=== PATIENT | female | born 2005 | race Hispanic/Latino ===

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

== ENCOUNTER 2025-07-12 22:24 | Emergency (ER) | payer SELFPAY ==
[~2025-07-12] VITALS: Ht 162.6 cm; Wt 85.3 kg
[~2025-07-12 22:24] MED LIST changes: +ACYC30OI2 TP; +CLIN-141 PO; +FAMC500T8 PO; +IBUP-1492 PO; -IBUP-2070 PO; +IBUP-2077 PO
[2025-07-12 22:55] LABS: APPEARANCE,URINE CLEAR (CLEAR); GLUCOSE, URINE (UA) NEGATIVE (NEGATIVE); LEUKOCYTE ESTERASE ,URINE NEGATIVE Leu/uL (NEGATIVE); NITRATE,URINE NEGATIVE (NEGATIVE); OCCULT BLOOD,URINE NEGATIVE (NEGATIVE)
[2025-07-12 22:58] LABS: RAPID GROUP A STREP negative (NEGATIVE)
[2025-07-12 23:01] LABS: ADD UA MICROSCOPIC YES
[2025-07-12 23:05] LABS: SARS-CoV-2, RNA, NAAT NEGATIVE SARS CoV-2 (NEGATIVE)
[2025-07-12 23:08] LABS: INFLUENZA TYPE A Negative For Type A (NEGATIVE); INFLUENZA TYPE B Negative For Type B (NEGATIVE)
[2025-07-12 23:09] LABS: SQUAMOUS EPITHELIAL CELL,UR Rare /HPF (0-2)
[2025-07-12] MEDS: 0.9%NACL 1000ML 1,000 ML IV ONE (23:12)
[2025-07-12 23:21] LABS: IMMATURE GRANULOCYTE ABSOLUTE 0.02 K/uL (0-1); NUCLEATED RED BLOOD CELLS 0.0 % (0.0-0.19); PLATELET COUNT (AUTO) 235 K/uL (130-400); RED BLOOD CELL COUNT(AUTO) 4.47 MIL/uL (4.00-5.50); RED CELL DISTRIBUTION WIDTH 12.3 % (11.0-15.5); WHITE BLOOD COUNT (AUTO) 6.5 K/uL (4.8-10.8)
[2025-07-12 23:30] LABS: CREATININE 0.5 mg/dL (0.5-1.0); GLOMERULAR FILTR. RATE CALC 138.0 mL/min (>90); GLUCOSE,RANDOM 93.0 mg/dL (70-105); SODIUM SERUM 133.0 mmol/L (136-145); UREA NITROGEN, BLOOD 12.0 mg/dL (7-18)
[2025-07-12 23:34] LABS: ASPARTATE AMINOTRANSFERASE 20.0 U/L (10-37); TOTAL PROTEIN, SERUM 6.9 g/dL (6.0-8.3)
[2025-07-12 23:36] LABS: AMPHET/METH SCREEN,URINE NEGATIVE (NEGATIVE); BARBITURATE SCREEN, URINE NEGATIVE (NEGATIVE); CANNABINOID SCREEN,URINE POSITIVE (NEGATIVE); COCAINE SCREEN,URINE NEGATIVE (NEGATIVE)
--- NOTE | 2025-07-13 01:17 | HMCIMG ---
EXAM: US Abdomen, Right Upper Quadrant. CLINICAL HISTORY: Abdominal pain. TECHNIQUE: Right upper quadrant sonography performed with image documentation. COMPARISON: None provided. FINDINGS: LIVER: Within normal limits in size and increased echogenicity. No mass. The liver measures 14.5 cm. GALLBLADDER: The gallbladder appears normal. No gallbladder wall thickening seen. No gallstones are evident. The gallbladder wall measures 2 mm. COMMON BILE DUCT: No dilation. The common bile duct measures 3 mm. PANCREAS: The pancreas is partially visualized. RIGHT KIDNEY: Unremarkable. Normal renal contours. No renal mass or calculus. No hydronephrosis. Right kidney measures 10.5 x 4.2 x 4.8 cm IMPRESSION: No acute process. Mild fatty liver. /Axel
[2025-07-13] MEDS ORDERED: DICY20TA2 PO (01:40)
[2025-07-13] MEDS ORDERED: ONDA-243 PO (01:40)
[2025-07-13] MEDS ORDERED: FAMO-136 PO (01:40)
--- NOTE | 2025-07-13 01:41 | ERN ---
ED Note History of Present Illness Stated Complaint: C/O ABD PAIN WITH N X V X DIARRHEA Chief Complaint: Abdominal Pain Time Seen by MD: 22:33 Time Seen by Midlevel: 22:33 Dictation: The patient is a 20-year-old female with no significant past medical history who presents to the emergency department with complaints of nausea and nonbloody vomiting onset 6:00 a.m.. Patient also reports nonbloody diarrhea. Denies any current abdominal pain but reports occasional epigastric pain after vomiting. Denies any fevers, denies any upper respiratory symptoms. Allergies: Coded Allergies: No Known Drug Allergies (Unverified Allergy, Unknown, 04/12/22) Home Meds Active Scripts Ibuprofen (Ibuprofen 800 mg Tab) 800 Mg Tab, 800 MG PO Q8H PRN for fever or pain, #30 TAB 0 Refills Prov:CHRISTOPHER PAGANP 05/04/24 Acyclovir (Zovirax) 5 % Oint, 1 APPL TP AD for 7 Days, #60 GM APPLY SMALL AMOUNT TO SKIN RASH WITH GLOVES EVERY 3 HOURS WHILE AWAKE FOR THE NEXT SEVEN DAYS. GOOD HAND WASHING AFTER TREATING Prov:CHRISTOPHER PAGAN [facility] 05/04/24 Famciclovir (Famciclovir) 500 Mg Tablet, 500 MG PO TID for 7 Days, #21 TAB Prov:CHRISTOPHER PAGAN [facility] 05/04/24 Clindamycin HCl (Clindamycin HCl) 300 Mg Capsule, 1 CAP PO QID for 7 Days, #28 CAP 0 Refills Prov:CHRISTOPHER PAGAN [facility] 05/04/24 Sumatriptan Succinate (Sumatriptan Succinate) 25 Mg Tablet, 50 MG PO ONCE PRN for HEADACHE, #9 TAB Prov:JAMEY MUNOZ MD 09/24/23 Ondansetron HCl (Ondansetron HCl) 4 Mg Tablet, 4 MG PO TIDP PRN for VOMITING, #20 TAB Prov:KELSEY BAKER MD 04/02/23 Famotidine (Pepcid) 20 Mg Tablet, 20 MG PO DAILY, #30 TAB Prov:KELSEY BAKER MD 04/02/23 Ibuprofen (Motrin/Advil) 800 Mg Tab, 800 MG PO TID, #30 TAB Prov:KELSEY BAKER MD 04/02/23 Prednisone (Prednisone) 20 Mg Tablet, 1 TAB PO AD for 6 Days, #14 TAB 0 Refills TAKE 3 TAB BY MOUTH daily X3 DAYS, THEN TAKE 2 TAB BY MOUTH daily X2 DAYS, THEN TAKE 1 TAB BY MOUTH ONCE A DAY X1 DAY. Prov:KELSEY BAKER MD 04/02/23 Ibuprofen (Ibuprofen) 600 Mg Tablet, 600 MG PO Q8H PRN for PAIN for 5 Days, #15 TAB Prov:SANDOVALLAURYN FNP 01/22/23 Ibuprofen (Motrin/Advil) 800 Mg Tab, 800 MG PO TID, #30 TAB Prov:KELSEY BAKER MD 07/16/22 Past Medical History Past Medical History: No Pertinent History Surgical History: None Family History: Negative Social History: Negative, Lives with family History: Not Applicable LMP: Jun 03, 2025 RN Note Reviewed/Agreed w/PFSH: Yes Review of System Dictation Constitutional: Negative for fever,chills, and weight loss Eyes: Negative for injury, pain,redness, and discharge ENT: Negative for injury,pain or swelling Cardiovascular: Negative for chest pain, palpitations, and edema Respiratory: Negative for shortness of breath, cough, and wheezing, Abdomen/GI: Negative for constipation positive for abdominal pain, nausea, vomiting, diarrhea Back: Negative for injury and pain : Negative for injury, bleeding and discharge MS/Extremity: Negative for injury and deformity Skin: Negative for rash, and discoloration Neuro: Negative for headache, weakness, numbness, tingling, and seizure Psych: Negative for suicide ideation, homicidal ideation, and hallucinations Initial Vital Sign VS Vital Signs Date Time Temp Pulse Resp B/P (MAP) Pulse Ox O2 Delivery O2 Flow Rate FiO2 07/12/25 22:26 99.7 93 20 118/73 99 Room Air 07/12/25 23:13 0 21 Physical Exam Dictation Vital Signs reviewed General Appearance: Alert, oriented x 3, no acute distress, well developed, nourished. Head and Face: non-traumatic. Eyes: PERRL, pink conjunctivas, eyelid no trauma, anterior chamber with arcus senilis. Ears: Pinnas intact and no signs of trauma or erythema ear canals clear and no discharge TM no erythema Nose: No discharge, no bleeding. Oropharynx: Mouth normal, tongue pink. pharynx clear,no erythema, tonsils no exudates, no abscesses noted, mucous membrane moist Neck: Supple, non-tender, no thyromegaly, no masses, no JVD, no bruits Breast:Deferred Chest:No tenderness, no crepitus, no paradoxical movement, no retractions Lungs:Clear, well-ventilated, symmetric, no rales, no wheezing, no rhonchi, no stridor, good breath sounds bilaterally Heart: Regular rate, regular rhythm, no murmur, no gallops Vascular: no peripheral edema, Abdomen: Soft, positive bowel sounds, nondistended, no guarding, nontender, no rebound, no masses no hepatomegaly, no splenomegaly, no Zavala's sign, no hernias. Rectal: Deferred Genital: Deferred Neurological: Normal speech, motor function intact, sensory function intact Musculoskeletal: Neck nontender, full range of motion, back nontender, full range of motion, Extremities: nontender, full range of motion Skin: Color pink, dry, no turgor, no rash, no lacerations, no abrasions, no contusions. Lymphatic: Deferred Results (Laboratory/Radiology) Laboratory/Radiology Laboratory Tests Test 07/12/25 22:35 07/12/25 23:13 Urine Color YELLOW (YELLOW) Urine Appearance CLEAR (CLEAR) Urine pH 6.5 (5.0-8.0) Urine Specific Manly 1.039 (1.001-1.031) Urine Protein 20 mg/dL (NEGATIVE) H Urine Glucose (UA) NEGATIVE mg/dL (NEGATIVE) Urine Ketones 20 mg/dL (NEGATIVE) H Urine Occult Blood NEGATIVE (NEGATIVE) Urine Nitrate NEGATIVE (NEGATIVE) Urine Bilirubin NEGATIVE mg/dL (NEGATIVE) Urine Urobilinogen 0.2 mg/dL (0.2-1.0) Urine Leukocyte Esterase NEGATIVE Roge/uL Urine RBC 0-1 /HPF (0-1) Urine WBC 0-1 /HPF (0-1) Urine Squamous Epithelial Cells Rare /HPF (0-2) Urine Bacteria None Seen /HPF (None Seen) Urine HCG, Qualitative NEGATIVE (NEGATIVE) Urine Opiates Screen NEGATIVE (NEGATIVE) Urine Barbiturates Screen NEGATIVE (NEGATIVE) Urine Phencyclidine Screen NEGATIVE (NEGATIVE) Urine Amphetamines Screen NEGATIVE (NEGATIVE) Urine Benzodiazepines Screen NEGATIVE (NEGATIVE) Urine Cocaine Screen NEGATIVE (NEGATIVE) Urine Marijuana (THC) Screen POSITIVE (NEGATIVE) H Influenza Type A Antigen Negative For Type A Influenza Type B Antigen Negative For Type B SARS-CoV-2, RNA, NAAT NEGATIVE SARS CoV-2 Group A Streptococcus Rapid negative (NEGATIVE) White Blood Count 6.5 K/uL (4.8-10.8) Red Blood Count 4.47 MIL/uL (4.00-5.50) Hemoglobin 13.8 g/dL (12.0-16.0) Hematocrit 40.4 % (36-48) Mean Corpuscular Volume 90.4 fL (80-100) Mean Corpuscular Hemoglobin 30.9 pg (27.0-33.0) Mean Corpuscular Hemoglobin Concent 34.2 g/dL (32.0-36.0) Red Cell Distribution Width 12.3 % (11.0-15.5) Platelet Count 235 K/uL (130-400) Mean Platelet Volume 10.5 fL (7.5-10.5) Immature Granulocyte % (Auto) 0.3 % (0-1) Neutrophils (%) (Auto) 82.3 % (40.0-77.0) H Lymphocytes (%) (Auto) 9.6 % (21.0-51.0) L Monocytes (%) (Auto) 7.6 % (3.0-13.0) Eosinophils (%) (Auto) 0.0 % (0.0-8.0) Basophils (%) (Auto) 0.2 % (0.0-5.0) Neutrophils # (Auto) 5.4 K/uL (1.8-7.7) Lymphocytes # (Auto) 0.6 K/uL (1.0-4.8) L Monocytes # (Auto) 0.5 K/uL (0.1-1.0) Eosinophils # (Auto) 0.00 K/uL (0.00-0.70) Basophils # (Auto) 0.01 K/uL (0.00-0.20) Absolute Immature Granulocyte (auto 0.02 K/uL (0-1) Nucleated Red Blood Cells 0.0 % (0.0-0.19) White Cell Morphology Comment See comments Sodium Level 133 mmol/L (136-145) L Potassium Level 3.3 mmol/L (3.5-5.1) L Chloride Level 98 mmol/L (101-111) L Carbon Dioxide Level 27 mmol/L (21-32) Blood Urea Nitrogen 12 mg/dL (7-18) Creatinine 0.5 mg/dL (0.5-1.0) Glomerular Filtration Rate Calc 138 mL/min (>90) Random Glucose 93 mg/dL (70-105) Total Calcium 8.3 mg/dL (8.5-10.1) L Total Bilirubin 2.6 mg/dL (0.2-1.0) H Direct Bilirubin 0.3 mg/dL (0.0-0.3) Aspartate Amino Transf (AST/SGOT) 20 U/L (10-37) Alanine Aminotransferase (ALT/SGPT) 33 U/L (12-78) Alkaline Phosphatase 65 U/L (50-136) Total Protein 6.9 g/dL (6.0-8.3) Albumin 3.6 g/dL (3.5-5.0) Lipase 25 U/L (16-77) SERVICE [id number] REASON: abd pain ORDERING PHYSICIAN: SANGITA HOGUE PRINTER MACHINE PROCEDURE: [id number] - US ABDOMINAL RUQ\LTD EXAM: US Abdomen, Right Upper Quadrant. CLINICAL HISTORY: Abdominal pain. TECHNIQUE: Right upper quadrant sonography performed with image documentation. COMPARISON: None provided. FINDINGS: LIVER: Within normal limits in size and increased echogenicity. No mass. The liver measures 14.5 cm. GALLBLADDER: The gallbladder appears normal. No gallbladder wall thickening seen. No gallstones are evident. The gallbladder wall measures 2 mm. COMMON BILE DUCT: No dilation. The common bile duct measures 3 mm. PANCREAS: The pancreas is partially visualized. RIGHT KIDNEY: Unremarkable. Normal renal contours. No renal mass or calculus. No hydronephrosis. Right kidney measures 10.5 x 4.2 x 4.8 cm IMPRESSION: No acute process. Mild fatty liver. /[place] Labs Reviewed?: Yes ED Course ED Course Orders Procedure Category Date Status Time Covid Rna Naat LAB 07/12/25 Complete 22:31 Influenza Type A & B, LAB 07/12/25 Complete Rapid 22:31 Rapid (Group A Strep) LAB 07/12/25 Complete 22:31 Urinalysis Profile LAB 07/12/25 Complete 22:31 ,Urine Test LAB 07/12/25 Complete 22:31 Cbc With Differential LAB 07/12/25 Complete 22:56 0.9%Nacl 1000ml (Ns PHA 07/12/25 Complete 1000ml) 23:00 Ondansetron 4mg Inj PHA 07/12/25 Complete (Zofran 4mg Inj) 23:00 Pantoprazole 40mg Inj PHA 07/12/25 Complete (Protonix 40mg Inj 23:00 Lipase LAB 07/12/25 Complete 22:56 Basic Metabolic Panel LAB 07/12/25 Complete 22:56 Hepatic Function Panel LAB 07/12/25 Complete 22:56 Drug Screen Urine LAB 07/12/25 Complete 23:05 Us Abdominal Ruq\Ltd US 07/12/25 Resulted 23:50 Potassium Bicarb/Cit PHA 07/13/25 Complete Ac 25meq (K-Lyte Ta 00:00 Current Medications Medications (Trade) Dose Ordered Sig/Chela Route PRN Reason Start Time Stop Time Status Last Admin Dose Admin Ondansetron HCl (zoFRAN 4MG INJ) 4 mg ONCE ONCE IVP 07/12/25 23:00 07/12/25 23:03 DC 07/12/25 23:12 Pantoprazole Sodium (PROTonix 40MG INJ) 40 mg ONCE ONCE IVP 07/12/25 23:00 07/12/25 23:03 DC 07/12/25 23:12 Potassium Bicarbonate (K-Lyte Tablet Eff 25 Meq Tablet.eff) 25 meq ONCE ONCE PO 07/13/25 00:00 07/13/25 00:01 DC 07/13/25 00:06 Sodium Chloride 1,000 ml @ 0 mls/hr ONCE ONCE IV 07/12/25 23:00 07/12/25 23:03 DC 07/12/25 23:12 Vital Signs Date Time Temp Pulse Resp B/P (MAP) Pulse Ox O2 Delivery O2 Flow Rate FiO2 07/12/25 23:13 100.4 90 18 123/76 99 Room Air* 0 21 07/12/25 22:26 99.7 93 20 118/73 99 Room Air Medical Decision Making MDM The patient is a 20-year-old female with no significant past medical history who presents to the emergency department with complaints of nausea and nonbloody vomiting onset 6:00 a.m.. Patient also reports nonbloody diarrhea. Denies any current abdominal pain but reports occasional epigastric pain after vomiting. Denies any fevers, denies any upper respiratory symptoms. CBC showed no leukocytosis, no anemia, chemistry showed mild hyponatremia, hypochloremia, hypokalemia, normal renal function, negative lipase, negative liver enzymes slightly elevated total bilirubin which patient has had in the past. Ultrasound mild fatty liver. Urinalysis unremarkable. Urine drug screen positive for marijuana. On physical exam patient is in no acute distress, nontoxic appearance, abdomen is nontender to palpation. Patient will be discharged to follow up with PCP. Differential diagnosis: Gastroenteritis, dehydration, gastritis, electrolyte imbalance Need for hospitalization: Patient does not meet criteria for hospitalization. There are no social concerns with this patient. DX & DISP Disposition: Discharge Departure Impression: Primary Impression: Viral gastroenteritis Additional Impression: Hypokalemia Condition: Stable Scripts Famotidine (Pepcid) 20 Mg Tablet 1 TAB PO DAILY for 30 Days, #60 TAB 0 Refills Prov: LENNIESANGITA [facility] 07/13/25 Dicyclomine HCl (Bentyl) 20 Mg Tab 1 TAB PO BID for irritable bowel symptoms for 30 Days, #60 TAB 0 Refills Prov: ALFREDITO HOGUELEN [facility] 07/13/25 Ondansetron (Ondansetron Odt) 4 Mg Tab.rapdis 4 MG PO Q6HPRN PRN for nausea, #16 TAB 0 Refills Prov: SANGITA HOGUE [facility] 07/13/25 Additional Instructions: Your labs showed you were slightly dehydrated in your potassium was slightly low which was replaced in you received IV fluids. Take your medications as prescribed. Follow up with your primary doctor in 1-2 days. If anything worsens please return to ER. FOLLOW-UP WITH PRIMARY CARE PROVIDER IN 1 TO 2 DAYS. TAKE MEDICATIONS DIRECTED HERE IN THE EMERGENCY ROOM. OKAY TO CONTINUE HOME MEDICATIONS UNLESS OTHERWISE DISCUSSED DURING YOUR VISIT IN THE EMERGENCY ROOM TODAY. RETURN TO YOUR NEAREST EMERGENCY ROOM IF SYMPTOMS WORSEN OR IF THERE IS NO IMPROVEMENT. CALL 911 IF YOU NEED IMMEDIATE ASSISTANCE. TAKE TYLENOL [id number] NEEDED AND IF NO CONTRAINDICATIONS ARE PRESENT. INCREASE ORAL HYDRATION. A WOUND CULTURE OR URINE CULTURE WAS ORDERED HERE IN THE EMERGENCY ROOM DEPARTMENT PLEASE FOLLOW-UP WITH PRIMARY CARE PROVIDER AND ADVISE THEM TO GET REPEAT PORTS FROM OUR FACILITY. IF YOU HAD ANY PEGGY WRAP/SPLINTS THAT WERE APPLIED HERE, PLEASE DO NOT REMOVE THEM UNTIL YOU SEE YOUR PRIMARY CARE OR SPECIALTY. Referrals: SELF,REFERRAL (PCP) Time of Disposition: 01:39 I have reviewed the case, and I agree with, Diagnosis and Plan SANGITA HOGUE PRINTER MACHINE Jul 13, 2025 01:41
[2025-07-13 01:48] VITALS: BP 112/72; PULSE 82; RESP 16; TEMP 98.6; O2SAT 100
== END 2025-07-13 01:49 | disposition home or self-care (01) ==
LOC: EDH 22:24
DX: A08.4 Viral intestinal infection, unspecified (principal); E87.6 Hypokalemia; R11.2 Nausea with vomiting, unspecified; Z79.1 Long term (current) use of non-steroidal anti-inflammatories (NSAID); Z79.624 Long term (current) use of inhibitors of nucleotide synthesis; Z20.822 Contact with and (suspected) exposure to COVID-19
CPT/HCPCS: 99285; 96374; 76705; 87635; 96361; 96375; 80076; 80048; 80305; 83690; 85025; 87880; 87804 ×2; 81001; 81025; 36415; J7030; J2405; J2470